=== PATIENT | female | born 1960 | race Caucasian/White ===

== ENCOUNTER 2019-07-10 09:00 | Day surgery (SDC) | payer OTHER, MEDICAID ==
[2019-07-10] MEDS ORDERED: LIDOCAINE 2% (SDV) 5 ML INJ (10:31)
[2019-07-10] MEDS ORDERED: PROPOFOL 60 ML (10:31)
[2019-07-10] MEDS ORDERED: FENTAnyl 50 MCG/ML VIAL IV (11:30)
== END 2019-07-10 11:30 | disposition home or self-care (01) ==
LOC: GIL 09:00
DX: Z12.11 Encounter for screening for malignant neoplasm of colon (principal); K64.8 Other hemorrhoids; K29.60 Other gastritis without bleeding
CPT/HCPCS: 43239; 88305